=== PATIENT | male | born 1950 | race Caucasian/White ===

== ENCOUNTER → 2019-12-26 | Outpatient (CLI) | payer MEDICARE, OTHER ==
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
== END | disposition home or self-care (01) ==
LOC: RADUSWWP 10:53
PROVIDERS: ATTEND Surgery
DX: K21.0 Gastro-esophageal reflux disease with esophagitis (principal); K44.9 Diaphragmatic hernia without obstruction or gangrene
CPT/HCPCS: 74220

== ENCOUNTER 2020-01-01 10:45 | Day surgery (SDC) | payer MEDICARE, OTHER ==
[2019-12-30 10:35] VITALS: BMI 18.8
[~2020-01-01 10:45] MED LIST: LACTATED RINGERS 1,000 ML IV SCH; LIDOCAINE 1% (10MG/ML) FOR IV START INTRADERMA PRN
[2020-01-01 11:32] VITALS: RESP 16; TEMP 97
[2020-01-01] MEDS ORDERED: LIDOCAINE 1% (10MG/ML) FOR IV START INTRADERMA ONE (11:36)
[2020-01-01] MEDS ORDERED: LIDOCAINE 1% INJ 10MG/ML (20 ML MDV) ONE (12:07)
[2020-01-01] MEDS ORDERED: PROPOFOL 10 MG/ML 20 ML VIAL IV ONE (12:07)
--- NOTE | 2020-01-01 12:08 | P.GSHP ---
History of Present Illness H&P Date: 01/01/20 Chief Complaint: GERD This a 69-year-old male presents today for EGD. He's had issues with GERD. His recent esophagram shows evidence of silent aspiration hiatal hernia and possible esophagitis Past Medical History Past Medical History: GERD/Reflux Additional Past Medical History / Comment(s): weight loss, hiatal hernia History of Any Multi-Drug Resistant Organisms: None Reported Past Surgical History: Appendectomy Additional Past Surgical History / Comment(s): lt foot surgery with pins and screws Past Anesthesia/Blood Transfusion Reactions: No Reported Reaction Past Psychological History: Bipolar, Depression Smoking Status: Current every day smoker Past Alcohol Use History: None Reported Additional Past Alcohol Use History / Comment(s): 5-6 cig/day Past Drug Use History: None Reported - Past Family History Father Family Medical History: Cancer Mother Family Medical History: Deep Vein Thrombosis (DVT) Medications and Allergies Home Medications Medication Instructions Recorded Confirmed Type ALPRAZolam [Xanax] 0.25 mg PO HS 12/30/19 12/30/19 History Acetaminophen [Tylenol Extra 2 tab PO BID 12/30/19 12/30/19 History Strength] Cyanocobalamin (Vitamin B-12) 1,000 mcg PO DAILY 12/30/19 12/30/19 History [Vitamin B-12] Donepezil [Aricept] 5 mg PO DAILY 12/30/19 12/30/19 History FLUoxetine HCL [PROzac] 60 mg PO DAILY 12/30/19 12/30/19 History Ferrous Sulfate [Iron] 325 mg PO DAILY 12/30/19 12/30/19 History OLANZapine [ZyPREXA] 20 mg PO HS 12/30/19 12/30/19 History Omeprazole [PriLOSEC] 40 mg PO DAILY 12/30/19 12/30/19 History Allergies Allergy/AdvReac Type Severity Reaction Status Date / Time No Known Allergies Allergy Verified 01/01/20 11:23 Surgical - Exam Vital Signs Temp Pulse Resp BP Pulse Ox 97.0 F L 71 16 151/67 96 01/01/20 11:29 01/01/20 11:29 01/01/20 11:29 01/01/20 11:29 01/01/20 11:29 - General well developed, well nourished, no distress - Eyes PERRL - ENT normal pinna - Neck no masses - Respiratory normal expansion - Cardiovascular Rhythm: regular - Abdomen Abdomen: soft, non tender Assessment and Plan Assessment: History of GERD. We'll perform EGD.
--- NOTE | 2020-01-01 12:15 | P.OP ---
Date of Procedure: 01/01/20 Preoperative Diagnosis: GERD Postoperative Diagnosis: Antral gastritis Hiatal hernia Esophagitis Procedure(s) Performed: EGD Anesthesia: MAC Surgeon: Solis White Pathology: other (Antrum, esophagus) Condition: stable Disposition: PACU Description of Procedure: The patient's placed on the endoscopy table in the lateral position. He received IV sedation. The gastro-/oropharynx and passed in the esophagus and stomach. Scope was then placed through the pylorus. The first and second portion of the duodenum appeared normal. The scope was then brought back the antrum and this appeared mildly inflamed. A biopsies performed. The scope was then retroflexed and the remainder of the stomach appeared normal. Patient had a moderate size hiatal hernia. The GE junction was 38 cm. The distal esophagus was inflamed and a biopsies performed. The proximal esophagus appeared normal. Scope was then withdrawn from patient.
[2020-01-01 12:40] VITALS: BP 152/80; PULSE 61
== END 2020-01-01 12:54 | disposition home or self-care (01) ==
LOC: ORWHC2ENDO 10:45
PROVIDERS: ATTEND Surgery
DX: K29.50 Unspecified chronic gastritis without bleeding (principal); K21.0 Gastro-esophageal reflux disease with esophagitis; K44.9 Diaphragmatic hernia without obstruction or gangrene; F41.9 Anxiety disorder, unspecified; F31.9 Bipolar disorder, unspecified; F17.210 Nicotine dependence, cigarettes, uncomplicated; Z79.899 Other long term (current) drug therapy; Z90.49 Acquired absence of other specified parts of digestive tract; Z82.49 Family history of ischemic heart disease and other diseases of the circulatory system
CPT/HCPCS: 88305; 43239; J2001; J2704

== ENCOUNTER 2020-01-26 09:14 | Emergency (ER) | payer OTHER, MEDICARE ==
[2020-01-26 09:37] LABS: Basophils # (A) 0.1 k/uL (0-0.2); Basophils % (A) 1 %; Eosinophils # (A) 0.1 k/uL (0-0.7); Eosinophils % (A) 1 %; HGB 12.5 gm/dL (13.0-17.5); Lymphocytes # (A) 1.6 k/uL (1.0-4.8); Lymphocytes % (A) 20 %; MCH 30.6 pg (25.0-35.0); MCHC 32.1 g/dL (31.0-37.0); MCV 95.3 fL (80.0-100.0); Mean Platelet Volume 7.9; Monocytes # (A) 0.4 k/uL (0-1.0); Monocytes % (A) 5 %; Neutrophils # (A) 5.7 k/uL (1.3-7.7); Neutrophils % (A) 71 %; Platelet Count 303 k/uL (150-450); RBC 4.09 m/uL (4.30-5.90); RDW 13.9 % (11.5-15.5)
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
[2020-01-26 09:52] LABS: ALT 22 U/L (4-49); AST 40 U/L (17-59); African American GFR (CKD) >90 (>60 ml/min/1.73 sqM); Albumin 3.8 g/dL (3.5-5.0); Alcohol <10 mg/dL; Alkaline Phosphatase 65 U/L (38-126); Amylase 81 U/L (30-110); Anion Gap 7 mmol/L; Blood Urea Nitrogen 16 mg/dL (9-20); Calcium 8.9 mg/dL (8.4-10.2); Carbon Dioxide 23 mmol/L (22-30); Chloride 111 mmol/L (98-107); Glucose 124 mg/dL (74-99); Non-African American GFR(CKD) 87 (>60 ml/min/1.73 sqM); Sodium 141 mmol/L (137-145); Total Bilirubin 0.6 mg/dL (0.2-1.3); Total Protein 7.1 g/dL (6.3-8.2)
[2020-01-26 09:57] LABS: INR 0.9 (<1.2); Prothrombin Time 9.9 sec (9.0-12.0)
[2020-01-26 10:01] LABS: Potassium 4.8 mmol/L (3.5-5.1)
[2020-01-26 10:02] LABS: Partial Thromboplastin Time 18.5 sec (22.0-30.0)
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
[2020-01-26 10:18] LABS: Troponin I 0.093 ng/mL (0.000-0.034)
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
[2020-01-26 11:12] VITALS: BP 150/78; PULSE 80; RESP 16; TEMP 98
== END 2020-01-26 11:00 | disposition other institution (70) ==
LOC: EC 09:14
DX: S06.2X9A Diffuse traumatic brain injury with loss of consciousness of unspecified duration, initial encounter (principal); S01.01XA Laceration without foreign body of scalp, initial encounter; S80.212A Abrasion, left knee, initial encounter; S80.812A Abrasion, left lower leg, initial encounter; S06.0X9A Concussion with loss of consciousness of unspecified duration, initial encounter; S22.49XA Multiple fractures of ribs, unspecified side, initial encounter for closed fracture; S27.321A Contusion of lung, unilateral, initial encounter; N28.1 Cyst of kidney, acquired; K21.9 Gastro-esophageal reflux disease without esophagitis; F31.9 Bipolar disorder, unspecified; I10 Essential (primary) hypertension; F17.200 Nicotine dependence, unspecified, uncomplicated; Z79.899 Other long term (current) drug therapy
CPT/HCPCS: 36415; 93005; 80053; 82150; 82550; 82553; 83605; 83690; 84484; 85025; 85610; 85730; 80320; 72170; 71045; 72125; 70450; 71260; 74177; 99291; 96365; J0690; Q9967

== ENCOUNTER 2020-03-27 01:34 | Inpatient (IN) | payer MEDICARE, OTHER ==
[2020-03-27] MEDS ORDERED: cefTRIAXone IN SWFI 1,000 MG/10 ML SYRINGE IVP STA (01:47)
--- NOTE | 2020-03-27 01:49 | ED ---
Recheck HPI - General Chief Complaint: Abdominal Pain Stated Complaint: kidney stone Time Seen by Provider: 03/27/20 01:45 Source: EMS, RN notes reviewed, old records reviewed Mode of arrival: EMS Limitations: no limitations - History of Present Illness Initial Comments: this is a 69-year-old male DF for evaluation patient accepted by hospital in transfer patient accepted for transfer for UTI polynephritis urine infection rhabdomyolysis dehydration increased nausea vomiting and not feeling well. Patient is point feels mildly improved as opposed when he presented to the hospital but again patient is a very significantly poor story and history obtained from patient's chart MD Complaint: abnormal lab (pyelo,incCPK) -: unknown Returns Today for: Called Because of Abnormal Lab/Test, persistent/worsening pain related to initial visit Symptoms Since Prior Visit: no new symptoms Context: called for abnormal lab result Associated Symptoms: none Treatments Prior to Arrival: Given Antibiotics on - Related Data Home Medications Medication Instructions Recorded Confirmed ALPRAZolam [Xanax] 0.25 mg PO HS 12/30/19 01/20/20 Acetaminophen [Tylenol Extra 2 tab PO BID 12/30/19 01/20/20 Strength] Cyanocobalamin (Vitamin B-12) 1,000 mcg PO DAILY 12/30/19 01/20/20 [Vitamin B-12] Donepezil [Aricept] 5 mg PO DAILY 12/30/19 01/20/20 FLUoxetine HCL [PROzac] 60 mg PO DAILY 12/30/19 01/20/20 Ferrous Sulfate [Iron] 325 mg PO DAILY 12/30/19 01/20/20 OLANZapine [ZyPREXA] 20 mg PO HS 12/30/19 01/20/20 Omeprazole [PriLOSEC] 40 mg PO DAILY 12/30/19 01/20/20 Allergies Allergy/AdvReac Type Severity Reaction Status Date / Time No Known Allergies Allergy Verified 03/27/20 01:40 Review of Systems ROS Statement: Those systems with pertinent positive or pertinent negative responses have been documented in the HPI. ROS Other: All systems not noted in ROS Statement are negative. Past Medical History Past Medical History: CVA/TIA, GERD/Reflux, Seizure Disorder Additional Past Medical History / Comment(s): hiatal hernia, weight loss History of Any Multi-Drug Resistant Organisms: None Reported Past Surgical History: Appendectomy, Orthopedic Surgery Additional Past Surgical History / Comment(s): left foot surg. w/pins & screw, recent EGD Past Anesthesia/Blood Transfusion Reactions: No Reported Reaction Past Psychological History: ADD/ADHD, Bipolar, Depression Smoking Status: Current every day smoker Past Alcohol Use History: None Reported Past Drug Use History: None Reported - Past Family History Mother Family Medical History: Deep Vein Thrombosis (DVT) Father Family Medical History: Cancer General Exam Limitations: no limitations General appearance: alert, in no apparent distress Head exam: Present: atraumatic, normocephalic, normal inspection Eye exam: Present: normal appearance, PERRL, EOMI. Absent: scleral icterus, conjunctival injection, periorbital swelling ENT exam: Present: normal exam, mucous membranes moist Neck exam: Present: normal inspection. Absent: tenderness, meningismus, lymphadenopathy Respiratory exam: Present: normal lung sounds bilaterally. Absent: respiratory distress, wheezes, rales, rhonchi, stridor Cardiovascular Exam: Present: normal rhythm, tachycardia, normal heart sounds. Absent: systolic murmur, diastolic murmur, rubs, gallop, clicks GI/Abdominal exam: Present: soft, normal bowel sounds. Absent: distended, tenderness, guarding, rebound, rigid Extremities exam: Present: normal inspection, full ROM, normal capillary refill. Absent: tenderness, pedal edema, joint swelling, calf tenderness Back exam: Present: normal inspection Neurological exam: Present: alert, oriented X3, CN II-XII intact Psychiatric exam: Present: normal affect, normal mood Skin exam: Present: warm, dry, intact, normal color. Absent: rash Course Vital Signs 03/27/20 01:36 Temperature 99.2 F Pulse Rate 110 H Respiratory 20 Rate Blood Pressure 135/68 O2 Sat by Pulse 96 Oximetry - Reevaluation(s) Reevaluation #1: 03/27/20 01:48 medical record is reviewed 03/27/20 01:48 transfer paperwork is reviewed 03/27/20 01:48 spoke with transferring physician about patient Reevaluation #2: 03/27/20 01:48 spoke patient regarding findings and plans, questions answered Medical Decision Making - Medical Decision Making 69 male DF for evaluation patient has pyelonephritis, patient be admitted for IV antibiotics hydration trending of lab values. - Radiology Data Radiology results: report reviewed (CT of as abdomen and pelvis does show bila teral pyelonephritis no kidney stone) Disposition Clinical Impression: UTI (urinary tract infection), Acute pyelonephritis, Rhabdomyolysis Disposition: ADMITTED IP TO THIS HOSP Condition: Fair Is patient prescribed a controlled substance at d/c from ED?: No Referrals: Zane Arias MD [Primary Care Provider] - 1-2 days
[2020-03-27] MEDS: SODIUM CHLORIDE 0.9% 500 ML 500 ML IV SCH ×2 (02:10→02:11)
[2020-03-27] MEDS: SODIUM CHLORIDE 0.9% 1,000 ML IV SCH ×3 (02:11→20:40)
[2020-03-27] MEDS: ENOXAPARIN 40 MG/0.4 ML SYRINGE SQ SCH (09:08)
[2020-03-27 13:23] LABS: Basophils % (A) 0 %; Eosinophils % (A) 0 %; HCT 31.7 % (39.0-53.0); HGB 10.1 gm/dL (13.0-17.5); Lymphocytes % (A) 6 %; MCH 30.6 pg (25.0-35.0); MCHC 31.8 g/dL (31.0-37.0); MCV 96.2 fL (80.0-100.0); Mean Platelet Volume 7.4; Monocytes # (A) 0.7 k/uL (0-1.0); Monocytes % (A) 5 %; Neutrophils % (A) 87 %; Platelet Count 286 k/uL (150-450); RBC 3.29 m/uL (4.30-5.90); RDW 13.7 % (11.5-15.5); WBC 16.1 k/uL (3.8-10.6)
[2020-03-27 13:52] LABS: ALT 15 U/L (4-49); AST 34 U/L (17-59); African American GFR (CKD) 65 (>60 ml/min/1.73 sqM); Albumin 2.4 g/dL (3.5-5.0); Albumin/Globulin Ratio 0.9; Alkaline Phosphatase 75 U/L (38-126); Anion Gap 7 mmol/L; Blood Urea Nitrogen 17 mg/dL (9-20); Calcium 7.4 mg/dL (8.4-10.2); Carbon Dioxide 19 mmol/L (22-30); Chloride 111 mmol/L (98-107); Globulin 2.7 g/dL; Glucose 99 mg/dL (74-99); Non-African American GFR(CKD) 56 (>60 ml/min/1.73 sqM); Potassium 3.4 mmol/L (3.5-5.1); Sodium 137 mmol/L (137-145); Total Bilirubin 0.4 mg/dL (0.2-1.3); Total Protein 5.1 g/dL (6.3-8.2)
[2020-03-27 13:56] VITALS: BMI 18.8
--- NOTE | 2020-03-27 14:17 | XR ---
EXAMINATION TYPE: XR chest 1V portable DATE OF EXAM: 03/27/2020 CLINICAL HISTORY: pyelonephritis. TECHNIQUE: Portable frontal view of the chest. COMPARISON: 01/26/[address] chest 01/26/2020. FINDINGS: The cardiomediastinal silhouette is within normal limits for size. Pulmonary vasculature i s normal. Mildly coarsened interstitial markings likely represents emphysematous change. There is no focal air space opacity, pleural effusion, or pneumothorax seen. There is callus formation of left ri b 2 anteriorly likely old healed or healing fracture. IMPRESSION: No acute cardiopulmonary process.
--- NOTE | 2020-03-27 14:21 | US ---
EXAMINATION TYPE: US kidneys/renal and bladder DATE OF EXAM: 03/27/2020 COMPARISON: CT 2019 CLINICAL HISTORY: pyelonephritis. EXAM MEASUREMENTS: Right Kidney: 10.2 x 4.3 x 4.4 cm Left Kidney: 10.7 x 6.1 x 5.2 cm Right Kidney: 2.6 x 2.6 x 2.1cm cyst lateral mid pole Left Kidney: no hydronephrosis or masses seen Bladder: irregular wall Bilateral Jets seen: right jet seen, left jet not seen There is no evidence for hydronephrosis at this point in time. No nephrolithiasis is seen. No kendra s are identified. The urinary bladder is anechoic. Bilateral ureteral jets are seen. IMPRESSION: Urinary bladder wall is irregular thickening could relate to cystitis. Septated cortical cyst upper p ole right kidney. No hydronephrosis.
[2020-03-27 18:18] LABS: Appearance,Urine Cloudy (Clear); Bacteria,Urine Rare /hpf; Bilirubin,Urine Negative (Negative); Blood,Urine Moderate (Negative); Color,Urine Yellow; Glucose,Urine (UA) Negative (Negative); Ketones,Urine 1+ (Negative); Leukocyte Esterase,Urine Large (Negative); Mucus,Urine Rare /hpf; Nitrite,Urine Negative (Negative); PH, Urine 6.5 (5.0-8.0); Protein,Urine 1+ (Negative); RBC,Urine 15 /hpf (0-5); Specific Gravity,Urine 1.012 (1.001-1.035); Urobilinogen,Urine <2.0 mg/dL (<2.0); WBC,Urine >182 /hpf (0-5)
[2020-03-27] MEDS: ALPRAZolam 0.25 MG TAB PO SCH (19:50)
[2020-03-27] MEDS: ACETAMINOPHEN TAB 500 MG TAB PO SCH (19:50)
[2020-03-27] MEDS: levETIRAcetam 500 MG TAB PO SCH (19:51)
[2020-03-27] MEDS: OLANZapine 10 MG TAB PO SCH (19:51)
[2020-03-27] MEDS ORDERED: HYDROmorphone 0.5 MG/0.5 ML SYRINGE IVP PRN (20:08)
[2020-03-27] MEDS ORDERED: HYDROcodone/APAP 5-325MG 1 EACH TAB PO PRN (20:08)
--- NOTE | 2020-03-27 20:51 | HP ---
HISTORY AND PHYSICAL CHIEF COMPLAINT: Abdominal pain. HISTORY OF PRESENT ILLNESS: This 69-year-old gentleman with a past medical history of multiple medical problems including CVA, TIA, GERD, seizure disorder, hiatal hernia, history of appendectomy, DJD, history ADD, ADHD, bipolar depression, being followed by Dr. Degroot in the the outpatient setting, was complaining of abdominal pain. The patient also had features of UTI with pyelonephritis and the patient was referred to [facility] for further evaluation and treatment. The patient was admitted for evaluation and treatment. There is no history of fever or rigors. No headache or loss of consciousness. The patient is unable to give a coherent history, probably has some dysphagia, most of the history was taken from my discussion with staff, reviewing the the chart. PAST MEDICAL HISTORY: History of CVA, TIA, GERD, seizure disorder, hiatal hernia, appendectomy, DJD, ADD, ADHD, bipolar and depression. MEDICATIONS: Prior to admission include Keppra, Prilosec, Zyprexa, iron, Prozac, Aricept, Vitamin B12, Tylenol and Xanax. ALLERGIES: None. FAMILY HISTORY, SOCIAL HISTORY, REVIEW OF SYSTEMS: Could not be taken at length. Family history of DVT apparently. PHYSICAL EXAM: Patient is conscious oriented x1. Pulse 98, blood pressure 129/60, respirations 20, temperature 98 degrees, pulse ox 98% on room air. HEENT: Conjunctivae normal. Oral mucosa moist. NECK: No jugular venous distention. No lymph node enlargement. CARDIOVASCULAR: S1 and S2 present. LUNGS: Breath sounds diminished at the bases. Few scattered rhonchi and crackles. ABDOMEN: Soft, nontender. No mass palpable. LEGS: No edema. NERVOUS SYSTEM: Diffusely weak. SKIN: No ulcers. JOINTS: No active deforming arthropathy. LABS: WBC 16.2, hemoglobin 10.1, sodium 137, potassium 3.4. Creatinine is 1.38. ASSESSMENT: 1. Acute urinary tract infection with sepsis, possible pyelonephritis. 2. History of nephrolithiasis. 3. Change in mental status, metabolic encephalopathy, acute on chronic. 4. Increased WBC. 5. Anemia, normocytic. 6. Hypokalemia. 7. Increased creatinine with acute renal failure possibly prerenal acute tubular necrosis. 8. History of CVA. 9. History of GERD. 10.History of seizure disorder. 11.History of hiatal hernia. 12.History of weight loss. 13.History of ADD and ADHD. 14.History of bipolar depression. 15.History of nicotine dependence, continued ongoing. RECOMMENDATIONS AND DISCUSSION: This 69-year-old gentleman who presented with multiple complex medical issues, we will monitor the patient closely, continue the current management. Will initiate broad- spectrum IV antibiotics. Ultrasound of the abdomen was ordered. I would also recommend a CT scan of the abdomen and pelvis with no contrast and also CT of the brain also. The patient recently had a seizure. I would cut down the IV fluids and repeat labs and I would also recommend neurology evaluation and neuro checks. Overall prognosis guarded because of multiple complex medical issues. Further recommendations to follow. MMODL / IJN: [id number] /
--- NOTE | 2020-03-27 21:30 | CT ---
EXAMINATION TYPE: CT brain wo con DATE OF EXAM: 03/27/2020 COMPARISON: 01/26/2020 HISTORY: weakness, ams CT DLP: 1099.4 mGycm Automated exposure control for dose reduction was used. There is cerebral cortical atrophy. There is hypodensity in the periventricular white matter that is more noticeable around the frontal horns of the lateral ventricles. There is no mass effect nor midli ne shift. There is no sign of intracranial hemorrhage. There is enlargement of the ventricles. The ca lvarium is intact. IMPRESSION: Cerebral atrophy and chronic small vessel ischemia. No change compared to old exam.
--- NOTE | 2020-03-27 21:38 | CT ---
EXAMINATION TYPE: CT abdomen pelvis wo con DATE OF EXAM: 03/27/2020 COMPARISON: Yesterday HISTORY: polynephritis, ams, weight loss CT DLP: 395.6 mGycm Automated exposure control for dose reduction was used. Images were obtained from the diaphragm to the floor the pelvis with no contrast. There is some infiltrate and atelectasis at the posterior lung bases. Heart size is normal. There is no pericardial effusion. There are small pleural effusions. Liver and spleen appear intact. The bile ducts are not dilated. There is no evidence of pancreatic ma ss. Gallbladder is somewhat contracted. Stomach is intact. There is no adrenal mass. There is 3 cm cortical cyst posterior right kidney. There are calcification s at the left and right renal hilum that are probably vascular. There is no hydronephrosis. Ureters a re not dilated. There is no retroperitoneal adenopathy. There is some fat stranding and fluid in the paracolic gutters. Bladder distends smoothly. There is no inguinal hernia. There is no evidence of a bowel obstruction. There is fluid levels in the large bowel down to the rectum. There is no evidence of free air. There is 20% loss of height of L5 vertebral body. There is some mild fat stranding around the left kidney. IMPRESSION: Mild fat stranding around the left kidney similar to exam yesterday and consistent with pyelonephriti s. No hydronephrosis seen to suggest obstruction. Large bowel fluid levels consistent with diarrhea and ileus. There is evidence of small bowel ileus w ith small bowel fluid levels. I do not suspect a mechanical obstruction. Large and small bowel not si gnificantly different than yesterday. L5 compression fracture unchanged. Small amount of fluid in the paracolic gutters is new compared to yesterday. There is new bilateral b asilar pulmonary infiltrates and atelectasis compared to yesterday.
[2020-03-28] MEDS: SODIUM CHLORIDE 0.9% 1,000 ML IV SCH ×2 (03:18→20:06)
[2020-03-28 06:04] LABS: Basophils % (A) 0 %; Eosinophils % (A) 0 %; HCT 29.4 % (39.0-53.0); HGB 9.7 gm/dL (13.0-17.5); Lymphocytes # (A) 0.6 k/uL (1.0-4.8); Lymphocytes % (A) 4 %; MCH 31.4 pg (25.0-35.0); MCHC 33.1 g/dL (31.0-37.0); MCV 95.1 fL (80.0-100.0); Mean Platelet Volume 7.7; Monocytes # (A) 0.7 k/uL (0-1.0); Monocytes % (A) 5 %; Neutrophils # (A) 12.8 k/uL (1.3-7.7); Neutrophils % (A) 89 %; Platelet Count 277 k/uL (150-450); RBC 3.09 m/uL (4.30-5.90); RDW 13.6 % (11.5-15.5); WBC 14.4 k/uL (3.8-10.6)
[2020-03-28] MEDS: ENOXAPARIN 40 MG/0.4 ML SYRINGE SQ SCH (08:41)
[2020-03-28] MEDS: CYANOCOBALAMIN 500 MCG TAB PO SCH (08:42)
[2020-03-28] MEDS: levETIRAcetam 500 MG TAB PO SCH ×2 (08:42→20:02)
[2020-03-28] MEDS: FERROUS SULFATE 325 MG TAB PO SCH (08:42)
[2020-03-28] MEDS: FLUoxetine HCL 20 MG CAP PO SCH (08:42)
[2020-03-28] MEDS: PANTOPRAZOLE 40 MG TABLET PO SCH (08:42)
[2020-03-28] MEDS: ACETAMINOPHEN TAB 500 MG TAB PO SCH ×2 (08:42→20:01)
[2020-03-28] MEDS: DONEPEZIL 5 MG TAB PO SCH (08:42)
[2020-03-28 09:52] LABS: Albumin 2.6 g/dL (3.80-4.90); Albumin/Globulin Ratio 1.3 (1.60-3.17); Anion Gap 7.2 mmol/L (4.00-12.00); BUN/Creat Ratio 15.45 Ratio (12.00-20.00); Calcium 7.3 mg/dL (8.7-10.3); Carbon Dioxide 19.8 mmol/L (21.6-31.8); Non-African American GFR(CKD) 68.1 (60.0-200.0); Total Bilirubin 0.2 mg/dL (0.2-1.2); Total Protein 4.6 g/dL (6.2-8.2)
--- NOTE | 2020-03-28 15:26 | PN ---
PROGRESS NOTE DATE OF SERVICE: 03/28/2020 This is a 69-year-old gentleman who was admitted with acute UTI with sepsis with possible pyelonephritis, being closely monitored. The patient is on broad spectrum IV antibiotics. The cultures are negative so far. The patient had abdominal and pelvis CAT scan yesterday which showed mild fat stranding about the left kidney consistent with pyelonephritis and large bowel fluid levels also. Compression fractures re- demonstrated. The patient is being closely monitored. No chest pain. No palpitations. PAST MEDICAL HISTORY: Reviewed. REVIEW OF SYSTEMS: Could not be taken. The patient is still confused. CURRENT MEDICATIONS: Reviewed include Tylenol, Mcneil, Xanax, Rocephin 1 gram, Aricept, Lovenox, iron sulfate, Prozac, Dilaudid, Keppra, Zyprexa, Protonix. PHYSICAL EXAM: GENERAL: Patient is alert and oriented times three. VITAL SIGNS: Pulse 101, blood pressure 110/68, respirations 16, temperature 98.9, pulse ox 97% on room air. HEENT: Conjunctivae normal. NECK: No jugular venous distention. RESPIRATORY: Breath sounds diminished at the bases. Bilateral scattered rhonchi and crackles. HEART: S1 and S2, muffled. ABDOMEN: Soft, no tenderness. EXTREMITIES: No edema, no swelling. NERVOUS: No focal deficits. LABS: WBC 14, hemoglobin 9.7, sodium 136, potassium 3, calcium is 7.3, and albumin is 2.6, total protein is 4.6, UA noted. ASSESSMENT: 1. Acute urinary tract infection with sepsis with possible left pyelonephritis. 2. History of nephrolithiasis. 3. Change in mental status, metabolic encephalopathy, acute on chronic. 4. Increased WBC. 5. Gait dysfunction. 6. Anemia, normocytic. 7. Hypokalemia. 8. Increased creatinine with acute renal failure possibly prerenal acute tubular necrosis. 9. History of cerebrovascular accident. 10.History of gastroesophageal reflux disease. 11.History of seizure disorder. 12.History of hiatal hernia. 13.History of weight loss. 14.History of attention deficit hyperactivity disorder. 15.History of bipolar depression. 16.History of nicotine dependence, continued ongoing. RECOMMENDATIONS AND DISCUSSION: In this 69-year-old gentleman who presented with multiple complex medical issues, we will monitor the patient closely. Continue the current medications, continue symptomatic treatment. Continue with IV antibiotics. Continue with DVT prophylaxis. Continue the rest of the medications. Otherwise, CT scan noted. PT OT evaluation, possible ECF rehab. Guarded prognosis. Further recommendations to follow. SADIQ / PHILIPPE: [id number] /
[2020-03-28] MEDS: ALPRAZolam 0.25 MG TAB PO SCH (20:02)
[2020-03-28] MEDS: OLANZapine 10 MG TAB PO SCH (20:02)
[2020-03-29] MEDS: SODIUM CHLORIDE 0.9% 1,000 ML IV SCH (05:29)
[2020-03-29 06:50] LABS: Basophils % (A) 0 %; Eosinophils # (A) 0.1 k/uL (0-0.7); Eosinophils % (A) 0 %; HGB 11.2 gm/dL (13.0-17.5); Hypochromasia Slight; Lymphocytes # (A) 0.7 k/uL (1.0-4.8); Lymphocytes % (A) 5 %; MCV 96.8 fL (80.0-100.0); Mean Platelet Volume 7.7; Monocytes # (A) 0.6 k/uL (0-1.0); Monocytes % (A) 4 %; Neutrophils # (A) 12.7 k/uL (1.3-7.7); Neutrophils % (A) 89 %; Platelet Count 338 k/uL (150-450); RBC 3.61 m/uL (4.30-5.90); RDW 13.7 % (11.5-15.5); WBC 14.2 k/uL (3.8-10.6)
[2020-03-29] MEDS: ENOXAPARIN 40 MG/0.4 ML SYRINGE SQ SCH (07:32)
[2020-03-29] MEDS: FLUoxetine HCL 20 MG CAP PO SCH (07:33)
[2020-03-29] MEDS: ACETAMINOPHEN TAB 500 MG TAB PO SCH ×2 (07:33→21:06)
[2020-03-29] MEDS: DONEPEZIL 5 MG TAB PO SCH (07:33)
[2020-03-29] MEDS: PANTOPRAZOLE 40 MG TABLET PO SCH (07:33)
[2020-03-29] MEDS: FERROUS SULFATE 325 MG TAB PO SCH (07:33)
[2020-03-29] MEDS: levETIRAcetam 500 MG TAB PO SCH ×2 (07:33→21:05)
[2020-03-29] MEDS: CYANOCOBALAMIN 500 MCG TAB PO SCH (07:33)
--- NOTE | 2020-03-29 11:11 | P.HPIM ---
History of Present Illness This is a pleasant 69 years old male with multiple medical problems, who was transferred from [facility] for possible kidney stone and pyelonephritis. Most likely patient was partially treated there This morning his sitting in chair, not in distress looked comfortable, he [facility] however he still with conscious of the surrounding, he thought it is 2001, and he could not recall the name of the president. He wasn't sure why he was in the hospital for. However patient denies any chest pain or dizziness, no dyspnea. No dysuria or increased frequency. No abdominal pain. When I asked the patient he told me he has good appetite and is willing to eat. Neurology service on the case he states that he smokes about 2 cigarettes per day however he denies alcohol or illicit drugs Past Medical History Past Medical History: CVA/TIA, GERD/Reflux, Seizure Disorder Additional Past Medical History / Comment(s): hiatal hernia, weight loss, pt had a seizure 03/21/20 History of Any Multi-Drug Resistant Organisms: None Reported Past Surgical History: Appendectomy, Orthopedic Surgery Additional Past Surgical History / Comment(s): left foot surg. w/pins & screw, recent EGD Past Anesthesia/Blood Transfusion Reactions: No Reported Reaction Past Psychological History: ADD/ADHD, Bipolar, Depression Smoking Status: Current every day smoker Past Alcohol Use History: None Reported Additional Past Alcohol Use History / Comment(s): pt states maybe 3 cigs/day Past Drug Use History: None Reported - Past Family History Mother Family Medical History: Deep Vein Thrombosis (DVT) Father Family Medical History: Cancer Medications and Allergies Home Medications Medication Instructions Recorded Confirmed Type ALPRAZolam [Xanax] 0.25 mg PO HS 12/30/19 03/27/20 History Acetaminophen [Tylenol Extra 2 tab PO BID 12/30/19 03/27/20 History Strength] Cyanocobalamin (Vitamin B-12) 1,000 mcg PO DAILY 12/30/19 03/27/20 History [Vitamin B-12] Donepezil [Aricept] 5 mg PO DAILY 12/30/19 03/27/20 History Ferrous Sulfate [Iron] 325 mg PO DAILY 12/30/19 03/27/20 History OLANZapine [ZyPREXA] 20 mg PO HS 12/30/19 03/27/20 History Omeprazole [PriLOSEC] 40 mg PO DAILY 12/30/19 03/27/20 History FLUoxetine HCL [PROzac] 60 mg PO DAILY 03/27/20 03/27/20 History levETIRAcetam [Keppra] 500 mg PO BID 03/27/20 03/27/20 History Allergies Allergy/AdvReac Type Severity Reaction Status Date / Time No Known Allergies Allergy Verified 03/27/20 08:30 Physical Exam Vitals: Vital Signs Temp Pulse Resp BP Pulse Ox 03/29/20 07:33 89 16 03/29/20 07:00 98.7 F 89 16 147/80 95 03/29/20 02:25 137/77 03/29/20 01:26 97.9 F 96 22 180/92 95 03/28/20 18:43 98.3 F 86 18 129/75 96 03/28/20 15:15 101 H 16 03/28/20 15:00 98.9 F 70 16 92/57 99 Intake and Output 03/28/20 03/29/20 03/29/20 22:59 06:59 14:59 Intake Total 290 Balance 290 Intake: Intake, IV Titration 190 Amount Sodium Chloride 0.9% 1, 140 000 ml @ 70 mls/hr IV . [id number] DEVON Rx#:[id number] cefTRIAXone 1 gm In 50 Sodium Chloride 0.9% 50 ml @ 100 mls/hr IVPB Q12HR DEVON Rx#:[id number] Oral 100 Other: Voiding Method Urinal Urinal Diaper Diaper # Voids 3 4 -GENERAL: The patient is alert and oriented x1-2, not in any acute distress. Thin built HEENT: Pupils are round and equally reacting to light. EOMI. No scleral icterus. No conjunctival pallor. Normocephalic, atraumatic. No pharyngeal erythema. No thyromegaly. CARDIOVASCULAR: S1 and S2 present. No murmurs, rubs, or gallops. PULMONARY: Chest is clear to auscultation, no wheezing or crackles. ABDOMEN: Soft, nontender, nondistended, normoactive bowel sounds. No palpable organomegaly. MUSCULOSKELETAL: No joint swelling or deformity. EXTREMITIES: No cyanosis, clubbing, or pedal edema. NEUROLOGICAL: Gross neurological examination did not reveal any focal deficits. SKIN: No rashes. no petechiae. Results CBC & Chem 7: 03/29/20 06:17 03/28/20 05:48 Labs: Abnormal Lab Results - Last 24 Hours (Table) 03/29/20 Range/Units 06:17 WBC 14.2 H (3.8-10.6) k/uL RBC 3.61 L (4.30-5.90) m/uL Hgb 11.2 L (13.0-17.5) gm/dL Hct 35.0 L (39.0-53.0) % Neutrophils # 12.7 H (1.3-7.7) k/uL Lymphocytes # 0.7 L (1.0-4.8) k/uL Microbiology - Last 24 Hours (Table) 03/27/20 17:20 Urine Culture - Final Urine,Clean Catch 03/27/20 12:53 Blood Culture - Preliminary Blood No Growth after 24 hours Thrombosis Risk Factor Assmnt - Choose All That Apply Each Risk Factor Represents 2 Points: Age 61-74 years Each Risk Factor Represents 3 Points: Family history of DVT/PE Thrombosis Risk Factor Assessment Total Risk Factor Score: 5 Thrombosis Risk Factor Assessment Level: High Risk Assessment and Plan Assessment: Possible urinary tract infection with left pyelonephritis at [facility], partially treated Metabolic encephalopathy secondary to above Mild to moderate calories protein malnutrition Acute kidney injury, creatinine improved close to baseline. Currently with a reference range History of kidney stone Gait dysfunction Normochromic anemia History of CVA Gastroesophageal reflux disease History of seizure History of hiatal hernia Bipolar depression, not an active issue Nicotine dependence Plan: This is a pleasant 69 years old male with multiple medical problems admitted with UTI. And altered mental status, improved gradually. Follow-up final culture results. Continue with ceftriaxone. Discontinue IV fluids and encourage eating. Follow-up recommendation by neurologist Labs and medication were reviewed.. Continue same treatment. Continue with symptomatic treatment. Resume home medication. Monitor lytes and vitals. DVT and GI prophylaxis. Further recommendationsas per clinical course of the patient DVT prophylaxis: Subcutaneous Lovenox GI Prophylaxis: Ppi Prognosis is guarded
[2020-03-29 14:17] LABS: Anion Gap 10.3 mmol/L (4.00-12.00); BUN/Creat Ratio 12.73 Ratio (12.00-20.00); Calcium 7.7 mg/dL (8.7-10.3); Carbon Dioxide 19.7 mmol/L (21.6-31.8); Non-African American GFR(CKD) 68.1 (60.0-200.0); Potassium 3.1 mmol/L (3.5-5.5)
[2020-03-29] MEDS: ASPIRIN 81 MG PO SCH (16:51)
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
--- NOTE | 2020-03-29 17:57 | US ---
EXAMINATION TYPE: US carotid duplex BILAT DATE OF EXAM: 03/29/2020 COMPARISON: NONE CLINICAL HISTORY: hx of tia. Hx of TIA. Hyperlipidemia. Previous smoker. EXAM MEASUREMENTS: RIGHT: Peak Systolic Velocity (PSV) cm/sec ----- Right CCA: 66.6 ----- Right ICA: 77.3 ----- Right ECA: 91.6 ICA/CCA ratio: 1.2 RIGHT: End Diastole cm/sec ----- Right CCA: 13.8 ----- Right ICA: 35.5 ----- Right ECA: 10.2 LEFT: Peak Systolic Velocity (PSV) cm/sec ----- Left CCA: 89.4 ----- Left ICA: 118.4 ----- Left ECA: 114.0 ICA/CCA ratio: 1.3 LEFT: End Diastole cm/sec ----- Left CCA: 24.5 ----- Left ICA: 32.8 ----- Left ECA: 10.7 VERTEBRALS (direction of flow): Right Vertebral: Antegrade Left Vertebral: Antegrade Rhythm: Normal Intimal thickening seen bilaterally. Hyperechoic plaque seen bilateral carotid bifurcations and left proximal ICA. More plaque seen on left side. No elevated velocities at this time. IMPRESSION: There is antegrade flow in the vertebral arteries. The images and measurements suggest close to 50% s tenosis of both internal carotid arteries. Criteria for Assigning % of Stenosis / Diameter reduction (Estimation based on the indirect measurements of the internal carotid artery velocities (ICA PSV). 1. Normal (no stenosis)=ICA PSV < 125 cm/s: ratio < 2.0: ICA EDV<40 cm/s. 2. Less than 50% stenosis=ICA PSV < 125 cm/s: ratio < 2.0: ICA EDV<40 cm/s. 3. 50 to 69% stenosis=ICA PSV of 125 to 230 cm/s: ration 2.0 ? 4.0: ICA EDV 40-100 cm/s. 4. Greater than 70% stenosis to near occlusion= ICA PSV > 230 cm/s: ratio > 4.0: ICA EDV > 100 cm/s. 5. Near occlusion= ICA PSV velocities may be low or undetectable: variable ratio and ICA EDV. 6. Total occlusion=unable to detect flow.
[2020-03-29] MEDS: ATORVASTATIN 20 MG TAB PO SCH (21:05)
[2020-03-29] MEDS: ALPRAZolam 0.25 MG TAB PO SCH (21:05)
[2020-03-29] MEDS: OLANZapine 10 MG TAB PO SCH (21:06)
[2020-03-29 23:02] LABS: Folate, Serum 3.8 ng/mL
[2020-03-30 06:09] LABS: Appearance,Urine Clear (Clear); Bilirubin,Urine Negative (Negative); Blood,Urine Trace (Negative); Color,Urine Colorless; Glucose,Urine (UA) Negative (Negative); Hyaline Casts,Urine 1 /lpf (0-2); Ketones,Urine Negative (Negative); Leukocyte Esterase,Urine Negative (Negative); Mucus,Urine Rare /hpf; Nitrite,Urine Negative (Negative); Protein,Urine Negative (Negative); RBC,Urine 2 /hpf (0-5); Specific Gravity,Urine 1.005 (1.001-1.035); Urobilinogen,Urine <2.0 mg/dL (<2.0); WBC,Urine 3 /hpf (0-5)
[2020-03-30 06:52] LABS: Basophils % (A) 0 %; Eosinophils # (A) 0.2 k/uL (0-0.7); Eosinophils % (A) 2 %; HCT 31.9 % (39.0-53.0); HGB 10.2 gm/dL (13.0-17.5); Lymphocytes # (A) 1.1 k/uL (1.0-4.8); Lymphocytes % (A) 10 %; MCH 30.4 pg (25.0-35.0); MCHC 32.1 g/dL (31.0-37.0); MCV 94.6 fL (80.0-100.0); Mean Platelet Volume 7.6; Monocytes # (A) 0.7 k/uL (0-1.0); Monocytes % (A) 6 %; Neutrophils # (A) 8.6 k/uL (1.3-7.7); Neutrophils % (A) 79 %; Platelet Count 363 k/uL (150-450); RBC 3.37 m/uL (4.30-5.90); RDW 13.9 % (11.5-15.5); WBC 10.8 k/uL (3.8-10.6)
[2020-03-30] MEDS: ACETAMINOPHEN TAB 500 MG TAB PO SCH ×2 (08:45→20:47)
[2020-03-30] MEDS: CYANOCOBALAMIN 500 MCG TAB PO SCH (08:45)
[2020-03-30] MEDS: FERROUS SULFATE 325 MG TAB PO SCH (08:45)
[2020-03-30] MEDS: ASPIRIN 81 MG PO SCH (08:45)
[2020-03-30] MEDS: PANTOPRAZOLE 40 MG TABLET PO SCH (08:45)
[2020-03-30] MEDS: ENOXAPARIN 40 MG/0.4 ML SYRINGE SQ SCH (08:45)
[2020-03-30] MEDS: FLUoxetine HCL 20 MG CAP PO SCH (08:45)
[2020-03-30] MEDS: DONEPEZIL 5 MG TAB PO SCH (08:46)
[2020-03-30 09:10] LABS: African American GFR (CKD) 100.6 (60.0-200.0); Anion Gap 7.7 mmol/L (4.00-12.00); BUN/Creat Ratio 15.56 Ratio (12.00-20.00); Calcium 7.8 mg/dL (8.7-10.3); Carbon Dioxide 24.3 mmol/L (21.6-31.8); Non-African American GFR(CKD) 86.8 (60.0-200.0); Potassium 2.8 mmol/L (3.5-5.5)
--- NOTE | 2020-03-30 10:00 | ECHOF ---
Referral Reason:stroke MEASUREMENTS -------- HEIGHT: 170.2 cm WEIGHT: 54.4 kg BP: RVIDd: 3.2 cm (< 3.3) IVSd: 1.0 cm (0.6 - 1.1) LVIDd: 3.4 cm (3.9 - 5.3) LVPWd: 1.1 cm (0.6 - 1.1) IVSs: 1.5 cm LVIDs: 2.6 cm LVPWs: 1.5 cm LA Diam: 3.4 cm (2.7 - 3.8) Ao Diam: 3.2 cm (2.0 - 3.7) AV Cusp: 1.2 cm (1.5 - 2.6) MV EXCURSION: 15.618 mm (> 18.000) MV EF SLOPE: 86 mm/s (70 - 150) EPSS: 0.7 cm MV E Doni: 0.92 m/s MV DecT: 165 ms MV A Doni: 0.80 m/s MV E/A Ratio: 1.15 AV maxP.16 mmHg AV meanP.09 mmHg RAP: 5.00 mmHg RVSP: 32.48 mmHg FINDINGS -------- Sinus rhythm. This was a technically adequate study. The left ventricular size is normal. There is borderline concentric left ventricular hypertrophy. Overall left ventricular systolic function is normal with, an EF between 60 - 65 %. The right ventricle is normal in size. The left atrial size is normal. The right atrium is normal in size. Interatrial and interventricular septum intact. There is mild to moderate aortic valve sclerosis. Trace to mild aortic regurgitation. There is mi ld aortic stenosis present. Peak/mean gradient across the Aortic Valve is 22.16mmHg / 11.09mmHg. Mild mitral annular calcification present. Mild tricuspid regurgitation present. Right ventricular systolic pressure is normal at < 35 mmHg. There is no pulmonic regurgitation present. The aortic root size is normal. Normal inferior vena cava with normal inspiratory collapse consistent with estimated right atrial pre ssure of 5 mmHg. There is no pericardial effusion. CONCLUSIONS -------- 1. The left ventricular size is normal. 2. There is borderline concentric left ventricular hypertrophy. 3. Overall left ventricular systolic function is normal with, an EF between 60 - 65 %. 4. There is mild to moderate aortic valve sclerosis. 5. Trace to mild aortic regurgitation. 6. There is mild aortic stenosis present. 7. Peak/mean gradient across the Aortic Valve is 22.16mmHg / 11.09mmHg. 8. Mild tricuspid regurgitation present. 9. There is no pericardial effusion. RN CORRECTIONAL: Tamica Murphy RDCS
[2020-03-30] MEDS ORDERED: Potassium Replacement Protocol 1 EACH MISC MISCELLANE PRN ×2 (10:03)
[2020-03-30] MEDS ORDERED: Magnesium Replacement Protocol 1 EACH MISC MISCELLANE PRN (10:03)
[2020-03-30] MEDS: POTASSIUM CHLORIDE ER 20 MEQ TAB.ER PO SCH ×3 (10:14→12:47)
[2020-03-30] MEDS: levETIRAcetam 500 MG TAB PO SCH ×2 (10:14→20:47)
[2020-03-30] MEDS ORDERED: metroNIDAZOLE-NS PMX 500 MG in SALINE 1 100ML.BAG IVPB SCH (13:06)
--- NOTE | 2020-03-30 13:09 | P.PN ---
Subjective This is a pleasant 69 years old male with multiple medical problems, who was transferred from [facility] for possible kidney stone and pyelonephritis. Most likely patient was partially treated there This morning his sitting in chair, not in distress looked comfortable, he knows he isn't [facility] however he still with conscious of the surrounding, he thought it is 2001, and he could not recall the name of the president. He wa sn't sure why he was in the hospital for. However patient denies any chest pain or dizziness, no dyspnea. No dysuria or increased frequency. No abdominal pain. When I asked the patient he told me he has good appetite and is willing to eat. Neurology service on the case he states that he smokes about 2 cigarettes per day however he denies alcohol or illicit drugs 03/30/20 Patient is sleepy today, he opens eyes to verbal stimuli smokes [place] to sleep right away. His been febrile Labs reviewed his WBC is 10.8 K, rest of the CBC is unremarkable, low potassium of 2.8 his been replaced, magnesium 1.8, or going to give 1 dose of magnesium sulfate. Repeat UA from today showing no evidence of infection. However protocol CT done and is elevated at 12. Urine culture showing no growth after [address] of the abdomen and pelvis done earlier showing possible left pyelonephritis Echocardiogram: Ejection fraction 60-65% with no significant for heart disease. Carotid Doppler: Close to 50% stenosis of both internal carotid arteries bilateral internal carotid artery stenosis by 50% Currently patient remains on ceftriaxone 2 g daily. We will add Flagyl Review of systems: N/a Active Medications Generic Name Dose Route Start Last Admin Trade Name Michael PRN Reason Stop Dose Admin Acetaminophen 1,000 mg 03/27/20 21:00 03/30/20 08:45 Acetaminophen Tab 500 Mg Tab PO 1,000 mg BID [facility] Administration Hydrocodone Bitart/Acetaminophen 1 each 03/27/20 20:08 Hydrocodone/Apap 5-325mg 1 Each Tab PO Q6HR PRN Pain Alprazolam 0.25 mg 03/27/20 21:00 03/29/20 21:05 Alprazolam 0.25 Mg Tab PO 0.25 mg HS [facility] Administration Aspirin 81 mg 03/29/20 16:45 03/30/20 08:45 Aspirin 81 Mg PO 81 mg DAILY [facility] Administration Atorvastatin Calcium 20 mg 03/29/20 21:00 03/29/20 21:05 Atorvastatin 20 Mg Tab PO 20 mg HS [facility] Administration Cyanocobalamin 1,000 mcg 03/28/20 09:00 03/30/20 08:45 Cyanocobalamin 500 Mcg Tab PO 1,000 mcg DAILY [facility] Administration Donepezil HCl 5 mg 03/28/20 09:00 03/30/20 08:46 Donepezil 5 Mg Tab PO 5 mg DAILY [facility] Administration Enoxaparin Sodium 40 mg 03/27/20 09:00 03/30/20 08:45 Enoxaparin 40 Mg/0.4 Ml Syringe SQ 40 mg DAILY [facility] Administration Ferrous Sulfate 325 mg 03/28/20 09:00 03/30/20 08:45 Ferrous Sulfate 325 Mg Tab PO 325 mg DAILY [facility] Administration Fluoxetine HCl 60 mg 03/28/20 09:00 03/30/20 08:45 Fluoxetine Hcl 20 Mg Cap PO 60 mg DAILY [facility] Administration Hydromorphone HCl 0.5 mg 03/27/20 20:08 Hydromorphone 0.5 Mg/0.5 Ml Syringe IVP Q6HR PRN Severe Pain Ceftriaxone Sodium 1 gm/ 50 mls @ 100 mls/hr 03/27/20 09:00 03/30/20 08:44 Sodium Chloride IVPB 100 mls/hr Q12HR [facility] Administration Magnesium Sulfate/Dextrose 1 100 mls @ 100 mls/hr 03/30/20 14:00 gm/ IV Solution IVPB 03/30/20 14:59 ONCE ONE Levetiracetam 500 mg 03/27/20 21:00 03/30/20 10:14 Levetiracetam 500 Mg Tab PO 500 mg BID [facility] Administration Miscellaneous Information 1 each 03/30/20 10:03 Potassium Replacement Protocol 1 Each Misc MISCELLANE DAILY PRN Per Protocol Protocol Miscellaneous Information 1 each 03/30/20 10:03 Magnesium Replacement Protocol 1 Each Misc MISCELLANE DAILY PRN Per Protocol Protocol Miscellaneous Information 1 each 03/30/20 10:03 Potassium Replacement Protocol 1 Each Misc MISCELLANE DAILY PRN Per Protocol Protocol Olanzapine 20 mg 03/27/20 21:00 03/29/20 21:06 Olanzapine 10 Mg Tab PO 20 mg HS [facility] Administration Pantoprazole Sodium 40 mg 03/28/20 07:30 03/30/20 08:45 Pantoprazole 40 Mg Tablet PO 40 mg DAILY@0730 [facility] Administration Objective - Vital Signs Vital signs: Vital Signs Temp 98.1 F 03/30/20 07:00 Pulse 96 03/30/20 07:00 Resp 16 03/30/20 07:00 BP 137/74 03/30/20 07:00 Pulse Ox 97 03/30/20 07:00 Intake & Output 03/29/20 03/30/20 03/30/20 18:59 06:59 18:59 Intake Total 330 1440 Balance 330 1440 Intake: Intake, IV Titration 330 Amount Sodium Chloride 0.9% 1, 280 000 ml @ 70 mls/hr IV . [id number] [facility] Rx#:[id number] cefTRIAXone 1 gm In 50 Sodium Chloride 0.9% 50 ml @ 100 mls/hr IVPB Q12HR [facility] Rx#:[id number] Oral 1440 Other: Voiding Method Urinal Urinal Diaper Diaper Diaper # Voids 1 1 - Exam -GENERAL: The patient is alert and oriented x1-2, not in any acute distress. Thin built HEENT: Pupils are round and equally reacting to light. EOMI. No scleral icterus. No conjunctival pallor. Normocephalic, atraumatic. No pharyngeal erythema. No thyromegaly. CARDIOVASCULAR: S1 and S2 present. No murmurs, rubs, or gallops. PULMONARY: Chest is clear to auscultation, no wheezing or crackles. ABDOMEN: Soft, nontender, nondistended, normoactive bowel sounds. No palpable organomegaly. MUSCULOSKELETAL: No joint swelling or deformity. EXTREMITIES: No cyanosis, clubbing, or pedal edema. NEUROLOGICAL: Gross neurological examination did not reveal any focal deficits. SKIN: No rashes. no petechiae. - Labs CBC & Chem 7: 03/30/20 06:29 03/30/20 06:29 Labs: Abnormal Lab Results - Last 24 Hours (Table) 03/29/20 03/29/20 03/29/20 Range/Units 06:17 06:17 06:17 WBC (3.8-10.6) k/uL RBC (4.30-5.90) m/uL Hgb (13.0-17.5) gm/dL Hct (39.0-53.0) % Neutrophils # (1.3-7.7) k/uL Potassium 3.1 L (3.5-5.5) mmol/L Chloride 110 H (96-109) mmol/L Carbon Dioxide 19.7 L (21.6-31.8) mmol/L Calcium 7.7 L (8.7-10.3) mg/dL Vitamin B12 1656.0 H (200.0-944.0) pg/mL Procalcitonin 12.01 H (0.02-0.09) ng/mL Urine Blood (Negative) Urine Mucus (None) /hpf 03/30/20 03/30/20 03/30/20 Range/Units 05:50 06:29 06:29 WBC 10.8 H (3.8-10.6) k/uL RBC 3.37 L (4.30-5.90) m/uL Hgb 10.2 L (13.0-17.5) gm/dL Hct 31.9 L (39.0-53.0) % Neutrophils # 8.6 H (1.3-7.7) k/uL Potassium 2.8 L (3.5-5.5) mmol/L Chloride (96-109) mmol/L Carbon Dioxide (21.6-31.8) mmol/L Calcium 7.8 L (8.7-10.3) mg/dL Vitamin B12 (200.0-944.0) pg/mL Procalcitonin (0.02-0.09) ng/mL Urine Blood Trace H (Negative) Urine Mucus Rare H (None) /hpf Microbiology - Last 24 Hours (Table) 03/27/20 12:53 Blood Culture - Preliminary Blood No Growth after 48 hours Assessment and Plan Assessment: Possible urinary tract infection with left pyelonephritis at [facility], partially treated Metabolic encephalopathy secondary to above Mild to moderate calories protein malnutrition Acute kidney injury, creatinine improved close to baseline. Currently with a reference range Bilateral internal carotid artery stenosis about 50% History of kidney stone Gait dysfunction Normochromic anemia History of CVA Gastroesophageal reflux disease History of seizure History of hiatal hernia Bipolar depression, not an active issue Nicotine dependence Plan: This is a pleasant 69 years old male with multiple medical problems admitted wit h UTI. And altered mental status, neurology team on the case. Continue with ceftriaxone, and Flagyl. Discontinue IV fluids and encourage eating. Follow-up recommendation by neurologist Labs and medication were reviewed.. Continue same treatment. Continue with symptomatic treatment. Resume home medication. Monitor lytes and vitals. DVT and GI prophylaxis. Further recommendationsas per clinical course of the patient DVT prophylaxis: Subcutaneous Lovenox GI Prophylaxis: Ppi Prognosis is guarded
[2020-03-30] MEDS ORDERED: MAGNESIUM SULFATE-D5W PMX 1 GM in DEXTROSE/WATER 1 100ML.BAG IVPB ONE (14:00)
--- NOTE | 2020-03-30 16:43 | CDI ---
Documentation Clarification Form Date: 03/30/2020 04:24:57 PM From: Nancy Capps RN, CCDS Admit Date: 03/27/2020 01:47:00 AM Patient Name: Dyan Medrano Visit Number: [id number] ATTENTION: The Clinical Documentation Specialists (CDI) and [facility] Coding Staff appreciate your assistance in clarifying documentation. Please respond to the clarification below the line at the bottom and electronically sign. The CDI & [facility] Coding staff will review the response and follow-up if needed. Please note: Queries are made part of the Legal Health Record. If you have any questions, please contact the author of this message via ITS. Dr. Tyson Leonard Mild to Moderate Malnutrition has been documented in 03/29-03/30 attending progress notes and requires specificity and a range diagnosis cannot be coded per coding guidelines. History/Risk Factors: CVA, Gerd, Seizure disorder Clinical Indicators: 03/27 H&P: "The patient is unable to give a coherent history, probably has some dysphagia." 03/29-03/30 Attending Progress Notes: "Thin built" 03/27-03/30 Labs: total protein 5.1/4.6, albumin 2.4/2.6, albumin/globulin ratio 1.3, Vitamin b12, calcium 7.4/7.3/7.7/7.8 Current BMI: 18.8 03/27 & 03/27 Dietary consult: "Underweight, moderate clavicle and orbital muscle wasting Insufficient energy intake: patient c/o nausea and vomiting per dietary consult Per nursing assessment: bilateral lower extremity weakness Treatment: Dietary Consult: completed 03/27 & 03/30 Supplements: Ensure Enlive TID Lab monitoring: Am daily In your professional opinion, can you please clarify if these findings more specifically as one of the following conditions? Mild Protein-Calorie Malnutrition Moderate Protein-Calorie Malnutrition Unable to determine (Last Revision: December 2018) Mild Protein-Calorie Malnutrition MTDD
--- NOTE | 2020-03-30 16:52 | P.PN ---
Subjective Progress Note Date: 03/30/20 She was seen at bedside and he had no complaints. He states that he's doing well and denies of any focal weakness, visual disturbance or numbness. Objective - Vital Signs Vital signs: Vital Signs Temp 98.0 F 03/30/20 13:28 Pulse 69 03/30/20 13:28 Resp 16 03/30/20 13:28 BP 119/74 03/30/20 13:28 Pulse Ox 95 03/30/20 13:28 Intake & Output 03/29/20 03/30/20 03/30/20 18:59 06:59 18:59 Intake Total 330 1440 Balance 330 1440 Weight 54.431 kg Intake: Intake, IV Titration 330 Amount Sodium Chloride 0.9% 1, 280 000 ml @ 70 mls/hr IV . [id number] [facility] Rx#:[id number] cefTRIAXone 1 gm In 50 Sodium Chloride 0.9% 50 ml @ 100 mls/hr IVPB Q12HR [facility] Rx#:[id number] Oral 1440 Other: Voiding Method Urinal Urinal Diaper Diaper Diaper # Voids 1 1 - Exam GENERAL: The patient is lying in bed and is not in acute distress. NEUROLOGICAL: Higher mental function: The patient is awake, alert, oriented to self, place and time. He is slow to respond but responding questions correctly. He is able to identify objects correctly (pen and watch). Patient is following simple commands. No aphasia and no neglect. Cranial nerves: The pupils are round, equal and reactive to light. Visual lee are full to confrontation throughout. Extraocular movement is intact no nystagmus is noted. Facial sensation is normal to touch throughout. The facial strength is normal throughout. Hearing is normal bilaterally to hand rub. Tongue is midline and moved [id number] without any difficulty. No dysarthria is noted. Shoulder shrug is normal bilaterally. Motor: Gait: was two person assist to get patient out of bed but had magnetic gait. The strength is 4+ to 5- throughout. Somewhat decreased bulk throughout. Normal tone. Cerebellum: Normal finger to nose bilaterally. Sensation: Sensation is normal to touch throughout. Reflexes (right/left): 2+ throughout except 3+ at bilateral tricpes and patellar. Otherwise 2+ throughout. Ankles are 1+ bilaterally. Plantars are downgoing bilaterally. - Labs CBC & Chem 7: 03/30/20 06:29 03/30/20 14:19 Labs: Abnormal Lab Results - Last 24 Hours (Table) 03/29/20 03/29/20 03/30/20 Range/Units 06:17 06:17 05:50 WBC (3.8-10.6) k/uL RBC (4.30-5.90) m/uL Hgb (13.0-17.5) gm/dL Hct (39.0-53.0) % Neutrophils # (1.3-7.7) k/uL Potassium (3.5-5.5) mmol/L Calcium (8.7-10.3) mg/dL Vitamin B12 1656.0 H (200.0-944.0) pg/mL Procalcitonin 12.01 H (0.02-0.09) ng/mL Urine Blood Trace H (Negative) Urine Mucus Rare H (None) /hpf 03/30/20 03/30/20 Range/Units 06:29 06:29 WBC 10.8 H (3.8-10.6) k/uL RBC 3.37 L (4.30-5.90) m/uL Hgb 10.2 L (13.0-17.5) gm/dL Hct 31.9 L (39.0-53.0) % Neutrophils # 8.6 H (1.3-7.7) k/uL Potassium 2.8 L (3.5-5.5) mmol/L Calcium 7.8 L (8.7-10.3) mg/dL Vitamin B12 (200.0-944.0) pg/mL Procalcitonin (0.02-0.09) ng/mL Urine Blood (Negative) Urine Mucus (None) /hpf Microbiology - Last 24 Hours (Table) 03/27/20 12:53 Blood Culture - Preliminary Blood No Growth after 72 hours Assessment and Plan Assessment: Cognitive impairment, urinary incontinence and falls is a likely suggestive of normal pressure hydrocephalus which correlates with the brain imaging History of ?seizures History of TIA Traumatic brain injury (about 2 months ago) Acute urinary tract infection with sepsis with possible left pyelonephritis. History of bipolar Nicotine dependence Plan: Regarding the patient history of seizures, the patient is on Keppra 500 mg twice a day and that is to be continued. I will also not modify that antiepileptic drug since it seems that the seizure is controlled. The patient did not have any seizure during hospital stay or within last 7 days. I will hold off on EEG for now. Regarding the patient memory problems, urinary incontinence and falls which seem consisted of normal pressure hydrocephalus. Also did imaging CT of the head the scene also consisted with normal pressure hydrocephalus (CT of the head shows atrophy but his ventricles lateral, third and fourth ventricle are more significantly enlarged in comparison to the atrophy). I notified the sister that the patient needs a lumbar puncture as an outpatient and possibly a shunt if lumbar puncture shows improvement in his symptoms. She said she'll take into consideration. TSH: 0.860, vitamin B12: 1656 and folate: 3.8. Also seeing neuropsychiatry for further assessment of the his cognition as an outpatient. Regarding the patient the TIA: carotid duplex: There is anterior grade flow in the vertebral arteries. The images and measurements suggest close to 50% stenosis of both internal carotid arteries. 2-D echo: Left ventricle hypertrophy. Ejection fraction of 60-65%. There is a mild aortic stenosis present. I'll order lipid profile, Continue Aspirin 81 mg and Lipitor 20 mg daily for secondary stroke prophylaxis Regarding the patient urinary tract infection with suspicion of pyelonephritis we'll defer the management to the primary team. Patient's sister stated that she'll make sure the patient sees a neurologist as an outpatient. She stated that that she's thinking about making the patient see Dr. Santiago. Again if the lumbar puncture shows improvement recommend the shunt which he needs to see the neurosurgery for that. He was counseled on tobacco cessation. Thank You for the consult. Mayito Berry M.D. Neuro-hospitalist Time with Patient: Less than 30
[2020-03-30] MEDS: ATORVASTATIN 20 MG TAB PO SCH (20:47)
[2020-03-30] MEDS: ALPRAZolam 0.25 MG TAB PO SCH (20:47)
[2020-03-30] MEDS: OLANZapine 10 MG TAB PO SCH (21:55)
[2020-03-31 04:43] LABS: Chol/HDL Ratio 6.81
[2020-03-31] MEDS: FLUoxetine HCL 20 MG CAP PO SCH (10:51)
[2020-03-31] MEDS: ENOXAPARIN 40 MG/0.4 ML SYRINGE SQ SCH (10:51)
[2020-03-31] MEDS: DONEPEZIL 5 MG TAB PO SCH (10:52)
[2020-03-31] MEDS: FERROUS SULFATE 325 MG TAB PO SCH (10:52)
[2020-03-31] MEDS: ASPIRIN 81 MG PO SCH (10:52)
[2020-03-31] MEDS: PANTOPRAZOLE 40 MG TABLET PO SCH (10:52)
[2020-03-31] MEDS: levETIRAcetam 500 MG TAB PO SCH ×2 (10:52→21:26)
[2020-03-31] MEDS: CYANOCOBALAMIN 500 MCG TAB PO SCH (10:52)
[2020-03-31] MEDS: ACETAMINOPHEN TAB 500 MG TAB PO SCH ×2 (10:52→21:26)
--- NOTE | 2020-03-31 18:18 | P.PN ---
Subjective Progress Note Date: 03/31/20 Patient was seen at bedside and he is said that he is doing fairly well. Denies of any weakness, numbness visual disturbance. Once is normal and he will be discharged home. Objective - Vital Signs Vital signs: Vital Signs Temp 98.1 F 03/31/20 11:52 Pulse 80 03/31/20 11:52 Resp 16 03/31/20 11:52 BP 162/78 03/31/20 11:52 Pulse Ox 97 03/31/20 11:52 Intake & Output 03/30/20 03/31/20 03/31/20 18:59 06:59 18:59 Intake Total 240 250 250 Balance 240 250 250 Weight 54.431 kg Intake: Intake, IV Titration 50 50 Amount cefTRIAXone 1 gm In 50 50 Sodium Chloride 0.9% 50 ml @ 100 mls/hr IVPB Q12HR [facility] Rx#:[id number] Oral 240 200 200 Other: Voiding Method Diaper Diaper Toilet Incontinent Incontinent # Voids 1 2 4 # Bowel Movements 1 - Exam GENERAL: The patient is lying in bed and is not in acute distress. NEUROLOGICAL: Higher mental function: The patient is awake, alert, oriented to self, place and time. He is slow to respond but responding questions correctly. He is able to identify objects correctly (pen and watch). Patient is following simple commands. No aphasia and no neglect. Cranial nerves: The pupils are round, equal and reactive to light. Visual lee are full to confrontation throughout. Extraocular movement is intact no nystagmus is noted. Facial sensation is normal to touch throughout. The facial strength is normal throughout. Hearing is normal bilaterally to hand rub. Tongue is midline and moved [id number] without any difficulty. No dysarthria is noted. Shoulder shrug is normal bilaterally. Motor: Gait: was two person assist to get patient out of bed but had magnetic gait. The strength is 4+ to 5- throughout. Somewhat decreased bulk throughout. Normal tone. Cerebellum: Normal finger to nose bilaterally. Sensation: Sensation is normal to touch throughout. Reflexes (right/left): 2+ throughout except 3+ at bilateral tricpes and patellar. Otherwise 2+ throughout. Ankles are 1+ bilaterally. Plantars are downgoing bilaterally. - Labs CBC & Chem 7: 03/30/20 06:29 03/30/20 14:19 Labs: Abnormal Lab Results - Last 24 Hours (Table) 03/30/20 03/30/20 Range/Units 06:29 14:19 Triglycerides 165.0 H (0.0-149.0) mg/dL HDL Cholesterol 16.0 L (40.0-60.0) mg/dL Procalcitonin 5.22 H (0.02-0.09) ng/mL Microbiology - Last 24 Hours (Table) 03/27/20 12:53 Blood Culture - Preliminary Blood No Growth after 96 hours Assessment and Plan Assessment: Cognitive impairment, urinary incontinence and falls is a likely suggestive of normal pressure hydrocephalus which correlates with the brain imaging History of ?seizures History of TIA Traumatic brain injury (about 2 months ago) Acute urinary tract infection with sepsis with possible left pyelonephritis. History of bipolar Nicotine dependence Plan: Regarding the patient history of seizures, the patient is on Keppra 500 mg twice a day and that is to be continued. I will also not modify that antiepileptic drug since it seems that the seizure is controlled. The patient did not have any seizure during hospital stay or within last 7 days. EEG is not warranted at this time since he had no further seizure-like activity recently. Regarding the patient memory problems, urinary incontinence and falls which seem consisted of normal pressure hydrocephalus. Also did imaging CT of the head the scene also consisted with normal pressure hydrocephalus (CT of the head shows atrophy but his ventricles lateral, third and fourth ventricle are more significantly enlarged in comparison to the atrophy). I notified the sister that the patient needs a lumbar puncture as an outpatient and possibly a shunt if lumbar puncture shows improvement in his symptoms. She said she'll take into consideration. TSH: 0.860, vitamin B12: 1656 and folate: 3.8. Also seeing neuropsychiatry for further assessment of the his cognition as an outpatient. Regarding the patient the TIA: carotid duplex: There is anterior grade flow in the vertebral arteries. The images and measurements suggest close to 50% stenosis of both internal carotid arteries. 2-D echo: Left ventricle hypertrophy. Ejection fraction of 60-65%. There is a mild aortic stenosis present. Lipid profile: Triglyceride 165, cholesterol is 109, LDL is 60 HDL is 16. Continue Aspirin 81 mg and Lipitor 20 mg daily for secondary stroke prophylaxis Regarding the patient urinary tract infection with suspicion of pyelonephritis we'll defer the management to the primary team. Patient's sister stated that she'll make sure the patient sees a neurologist as an outpatient. She stated that that she's thinking about making the patient see Dr. Santiago. Again if the lumbar puncture shows improvement recommend the shunt which he needs to see the neurosurgery for that. He was counseled on tobacco cessation. We'll follow up with the patient sporadically. Mayito Berry M.D. Neuro-hospitalist Time with Patient: Less than 30
[2020-03-31] MEDS: ATORVASTATIN 20 MG TAB PO SCH (21:25)
[2020-03-31] MEDS: ALPRAZolam 0.25 MG TAB PO SCH (21:26)
[2020-03-31] MEDS: OLANZapine 10 MG TAB PO SCH (21:27)
--- NOTE | 2020-04-01 00:27 | P.PN ---
Subjective This is a pleasant 69 years old male with multiple medical problems, who was transferred from [facility] for possible kidney stone and pyelonephritis. Most likely patient was partially treated there This morning his sitting in chair, not in distress looked comfortable, he knows he isn't [facility] however he still with conscious of the surrounding, he thought it is 2001, and he could not recall the name of the president. He wa sn't sure why he was in the hospital for. However patient denies any chest pain or dizziness, no dyspnea. No dysuria or increased frequency. No abdominal pain. When I asked the patient he told me he has good appetite and is willing to eat. Neurology service on the case he states that he smokes about 2 cigarettes per day however he denies alcohol or illicit drugs 03/30/20 Patient is sleepy today, he opens eyes to verbal stimuli smokes [place] to sleep right away. His been febrile Labs reviewed his WBC is 10.8 K, rest of the CBC is unremarkable, low potassium of 2.8 his been replaced, magnesium 1.8, or going to give 1 dose of magnesium sulfate. Repeat UA from today showing no evidence of infection. However protocol CT done and is elevated at 12. Urine culture showing no growth after [address] of the abdomen and pelvis done earlier showing possible left pyelonephritis Echocardiogram: Ejection fraction 60-65% with no significant for heart disease. Carotid Doppler: Close to 50% stenosis of both internal carotid arteries bilateral internal carotid artery stenosis by 50% Currently patient remains on ceftriaxone 2 g daily. We will add Flagyl 03/31/2020 Patient is fully awake and oriented, he knows he's had recurrent hospital [place], he knows the year and the name of the president, patient was updated about his medical condition, he looks very calm and appropriate. He denies any urinary tract symptoms, no other specific symptoms Neurology team on the case and suggest outpatient follow-up for possible normal pressure hydrocephalus. Echocardiogram showed ejection fraction 60-65%. Possible discharge in 24-48 hours if he keep improving and clinically stable Objective - Vital Signs Vital signs: Vital Signs Temp 98.5 F 03/31/20 20:00 Pulse 84 03/31/20 20:00 Resp 16 04/01/20 00:00 BP 164/76 03/31/20 20:00 Pulse Ox 100 03/31/20 20:00 Intake & Output 03/31/20 03/31/20 04/01/20 06:59 18:59 06:59 Intake Total 250 250 Balance 250 250 Intake: Intake, IV Titration 50 50 Amount cefTRIAXone 1 gm In 50 50 Sodium Chloride 0.9% 50 ml @ 100 mls/hr IVPB Q12HR [facility] Rx#:[id number] Oral 200 200 Other: Voiding Method Diaper Toilet Toilet Incontinent # Voids 2 4 1 # Bowel Movements 1 - Exam -GENERAL: The patient is alert and oriented x1-2, not in any acute distress. Thin built HEENT: Pupils are round and equally reacting to light. EOMI. No scleral icterus. No conjunctival pallor. Normocephalic, atraumatic. No pharyngeal erythema. No thyromegaly. CARDIOVASCULAR: S1 and S2 present. No murmurs, rubs, or gallops. PULMONARY: Chest is clear to auscultation, no wheezing or crackles. ABDOMEN: Soft, nontender, nondistended, normoactive bowel sounds. No palpable organomegaly. MUSCULOSKELETAL: No joint swelling or deformity. EXTREMITIES: No cyanosis, clubbing, or pedal edema. NEUROLOGICAL: Gross neurological examination did not reveal any focal deficits. SKIN: No rashes. no petechiae. - Labs CBC & Chem 7: 03/30/20 06:29 03/30/20 14:19 Labs: Abnormal Lab Results - Last 24 Hours (Table) 03/30/20 Range/Units 06:29 Triglycerides 165.0 H (0.0-149.0) mg/dL HDL Cholesterol 16.0 L (40.0-60.0) mg/dL Microbiology - Last 24 Hours (Table) 03/27/20 12:53 Blood Culture - Preliminary Blood No Growth after 96 hours Assessment and Plan Assessment: Possible urinary tract infection with left pyelonephritis at [facility], partially treated Metabolic encephalopathy secondary to above Mild to moderate calories protein malnutrition Acute kidney injury, creatinine improved close to baseline. Currently with a reference range Bilateral internal carotid artery stenosis about 50% History of kidney stone Gait dysfunction Normochromic anemia History of CVA Gastroesophageal reflux disease History of seizure History of hiatal hernia Bipolar depression, not an active issue Nicotine dependence Plan: This is a pleasant 69 years old male with multiple medical problems admitted with UTI. And altered mental status, neurology team on the case. Continue with ceftriaxone, and Flagyl. Discontinue IV fluids and encourage eating. Follow-up recommendation by neurologist Labs and medication were reviewed.. Continue same treatment. Continue with symptomatic treatment. Resume home medication. Monitor lytes and vitals. DVT and GI prophylaxis. Further recommendationsas per clinical course of the patient DVT prophylaxis: Subcutaneous Lovenox GI Prophylaxis: Ppi Prognosis is guarded
[2020-04-01 06:45] LABS: Basophils % (A) 0 %; Eosinophils # (A) 0.2 k/uL (0-0.7); Eosinophils % (A) 2 %; HCT 31.6 % (39.0-53.0); Lymphocytes # (A) 1.7 k/uL (1.0-4.8); Lymphocytes % (A) 15 %; MCH 30.2 pg (25.0-35.0); MCHC 31.7 g/dL (31.0-37.0); MCV 95.2 fL (80.0-100.0); Mean Platelet Volume 7.3; Monocytes # (A) 0.7 k/uL (0-1.0); Monocytes % (A) 6 %; Neutrophils # (A) 8.4 k/uL (1.3-7.7); Neutrophils % (A) 75 %; Platelet Count 465 k/uL (150-450); RBC 3.31 m/uL (4.30-5.90); RDW 14.2 % (11.5-15.5); WBC 11.1 k/uL (3.8-10.6)
[2020-04-01] MEDS: ENOXAPARIN 40 MG/0.4 ML SYRINGE SQ SCH (08:55)
[2020-04-01] MEDS: ACETAMINOPHEN TAB 500 MG TAB PO SCH (08:55)
[2020-04-01] MEDS: FLUoxetine HCL 20 MG CAP PO SCH (08:55)
[2020-04-01] MEDS: levETIRAcetam 500 MG TAB PO SCH (08:56)
[2020-04-01] MEDS: PANTOPRAZOLE 40 MG TABLET PO SCH (08:56)
[2020-04-01] MEDS: FERROUS SULFATE 325 MG TAB PO SCH (08:56)
[2020-04-01] MEDS: CYANOCOBALAMIN 500 MCG TAB PO SCH (08:56)
[2020-04-01] MEDS: ASPIRIN 81 MG PO SCH (08:56)
[2020-04-01] MEDS: DONEPEZIL 5 MG TAB PO SCH (08:57)
--- NOTE | 2020-04-01 11:51 | P.DS ---
Providers Date of admission: 03/27/20 01:47 Attending physician: Davin Cloud Consults: 03/27/20 20:23 Consult Physician Routine Consulting Provider: Mayito Berry Consult Reason/Comments: CVA/ seizures Do you want consulting provider notified?: Yes Primary care physician: Allen Parish Hospital Course: Diagnoses: Acute urinary tract infection with left pyelonephritis , CT of the abdomen showing fat stranding around the left kidney, significantly improved. Metabolic encephalopathy secondary to above, improved and patient back to mental baseline over the last 2 days Mild to moderate calories protein malnutrition Acute kidney injury, creatinine improved close to baseline. Currently within a reference range Bilateral internal carotid artery stenosis about 50%, follow-up as an outpatient History of kidney stone Gait dysfunction Normochromic anemia History of CVA Gastroesophageal reflux disease History of seizure History of hiatal hernia Bipolar depression, not an active issue Nicotine dependence Hospital course: This is a pleasant 69 years old male with multiple medical problems, who was transferred from [facility] for possible kidney stone and pyelonephritis. Most likely patient was partially treated there On the presentation patient was confused and delirious secondary to his sepsis. Repeat urine analysis in this hospital showing possible infection with large leukocyte esterase, with large WBCs more than 182, patient was treated IV antibiotics in the form of ceftriaxone, his repeat urine analysis showed significant improvement with normal WBC at 3 per high-power field. And negative leukocyte esterase. Urine culture is negative, possibly because patient is already been partially treated. CT of the abdomen and pelvis showing flaccid stranding around the left kidney with suspicion for left pyelonephritis. Patient mentation also significantly improved and over the last 2 days he is been awake alert and oriented to time, place and person and his or to the surrounding, neurologist evaluated him and cleared him for discharge. However patient CAT scan of the head was suspicious for normal pressure hydrocephalus in the presents of urinary symptoms and gait difficulty, neurologist recommended outpatient follow-up for possible therapeutic and diagnostic lumbar puncture and possible shunt if indicated, On the day of discharge patient denies any symptoms and he states that his back to his baseline, no chest pain or dyspnea, no abdominal pain, no nausea vomiting, no dysuria or increased frequency or hesitancy or urgency, no other urinary complaints. No change in bowel habits. Patient is a think she can go back to his on place Patient was cleared for discharge by neurology service patient will be discharge on oral antibiotics with Ceftin for 10 days Problems and management plan were discussed with the patient and he verbalized understanding and acceptance Patient was found stable and can be discharged home however he needs follow-up as an outpatient. Patient was instructed to follow up with PCP Dr. Juana Degroot within one week and patient agrees, also patient was instructed to follow up with neurologist Dr. Salvador mcgee in 1-2 weeks and with her urologist Dr. Russo in 1-2 weeks, he agrees See progress note from today for physical exam Time spent more than 35 minutes Patient Condition at Discharge: Fair Plan - Discharge Summary Discharge Rx Participant: No New Discharge Prescriptions: No Action Omeprazole [PriLOSEC] 40 mg PO DAILY Ferrous Sulfate [Iron] 325 mg PO DAILY Acetaminophen [Tylenol Extra Strength] 2 tab PO BID OLANZapine [ZyPREXA] 20 mg PO HS ALPRAZolam [Xanax] 0.25 mg PO HS Donepezil [Aricept] 5 mg PO DAILY Cyanocobalamin (Vitamin B-12) [Vitamin B-12] 1,000 mcg PO DAILY levETIRAcetam [Keppra] 500 mg PO BID FLUoxetine HCL [PROzac] 60 mg PO DAILY Discharge Medication List ALPRAZolam [Xanax] 0.25 mg PO HS 12/30/19 [History] Acetaminophen [Tylenol Extra Strength] 2 tab PO BID 12/30/19 [History] Cyanocobalamin (Vitamin B-12) [Vitamin B-12] 1,000 mcg PO DAILY 12/30/19 [History] Donepezil [Aricept] 5 mg PO DAILY 12/30/19 [History] Ferrous Sulfate [Iron] 325 mg PO DAILY 12/30/19 [History] OLANZapine [ZyPREXA] 20 mg PO HS 12/30/19 [History] Omeprazole [PriLOSEC] 40 mg PO DAILY 12/30/19 [History] FLUoxetine HCL [PROzac] 60 mg PO DAILY 03/27/20 [History] levETIRAcetam [Keppra] 500 mg PO BID 03/27/20 [History] Follow up Appointment(s)/Referral(s): Nolvia Santiago MD [REFERRING] - 1 Week (Neurologist) Zane Arias MD [Primary Care Provider] - 1-2 days Pilar Santiago MD [REFERRING] - 1 Week (Neurologist)
[2020-04-01 11:58] VITALS: BP 119/73; PULSE 76; RESP 15; TEMP 98.4
--- NOTE | 2020-04-01 16:24 | P.PN ---
Subjective Progress Note Date: 04/01/20 He was seen at bedside and he continues to feel good. Denies of any new neurological problems. Objective - Vital Signs Vital signs: Vital Signs Temp 98.4 F 04/01/20 11:58 Pulse 76 04/01/20 11:58 Resp 15 04/01/20 11:58 BP 119/73 04/01/20 11:58 Pulse Ox 96 04/01/20 11:58 Intake & Output 03/31/20 04/01/20 04/01/20 18:59 06:59 18:59 Intake Total 250 490 Balance 250 490 Weight 54.431 kg Intake: Intake, IV Titration 50 Amount cefTRIAXone 1 gm In 50 Sodium Chloride 0.9% 50 ml @ 100 mls/hr IVPB Q12HR [facility] Rx#:[id number] Oral 200 490 Other: Voiding Method Toilet Toilet Toilet Diaper Incontinent # Voids 4 1 3 # Bowel Movements 1 1 - Exam GENERAL: The patient is lying in bed and is not in acute distress. NEUROLOGICAL: Higher mental function: The patient is awake, alert, oriented to self, place and time. He is slow to respond but responding questions correctly. He is able to i dentify objects correctly (pen and watch). Patient is following simple commands. No aphasia and no neglect. Cranial nerves: The pupils are round, equal and reactive to light. Visual lee are full to confrontation throughout. Extraocular movement is intact no nystagmus is noted. Facial sensation is normal to touch throughout. The facial strength is normal throughout. Hearing is normal bilaterally to hand rub. Tongue is midline and moved [id number] without any difficulty. No dysarthria is noted. Shoulder shrug is normal bilaterally. Motor: Gait: was two person assist to get patient out of bed but had magnetic gait. The strength is 5/5 throughout. Somewhat decreased bulk throughout. Normal tone. Cerebellum: Normal finger to nose bilaterally. Sensation: Sensation is normal to touch throughout. Reflexes (right/left): 2+ throughout except 3+ at bilateral tricpes and patell ar. Otherwise 2+ throughout. Ankles are 1+ bilaterally. Plantars are downgoing bilaterally. - Labs CBC & Chem 7: 04/01/20 06:27 03/30/20 14:19 Labs: Abnormal Lab Results - Last 24 Hours (Table) 04/01/20 Range/Units 06:27 WBC 11.1 H (3.8-10.6) k/uL RBC 3.31 L (4.30-5.90) m/uL Hgb 10.0 L (13.0-17.5) gm/dL Hct 31.6 L (39.0-53.0) % Plt Count 465 H (150-450) k/uL Neutrophils # 8.4 H (1.3-7.7) k/uL Microbiology - Last 24 Hours (Table) 03/27/20 12:53 Blood Culture - Preliminary Blood No Growth after 120 hours Assessment and Plan Assessment: Cognitive impairment, urinary incontinence and falls is a likely suggestive of normal pressure hydrocephalus which correlates with the brain imaging History of ?seizures History of TIA Traumatic brain injury (about 2 months ago) Acute urinary tract infection with sepsis with possible left pyelonephritis. History of bipolar Nicotine dependence Plan: Regarding the patient history of seizures, the patient is on Keppra 500 mg twice a day and that is to be continued. I will also not modify that antiepileptic drug since it seems that the seizure is controlled. The patient did not have any seizure during hospital stay or within last 7 days. EEG is not warranted at this time since he had no further seizure-like activity recently. Regarding the patient memory problems, urinary incontinence and falls which seem consisted of normal pressure hydrocephalus. Also did imaging CT of the head the scene also consisted with normal pressure hydrocephalus (CT of the head shows atrophy but his ventricles lateral, third and fourth ventricle are more significantly enlarged in comparison to the atrophy). I notified the sister that the patient needs a lumbar puncture as an outpatient and possibly a shunt if lumbar puncture shows improvement in his symptoms. She said she'll take into consideration. TSH: 0.860, vitamin B12: 1656 and folate: 3.8. Also seeing neuropsychiatry for further assessment of the his cognition as an outpatient. Regarding the patient the TIA: carotid duplex: There is anterior grade flow in the vertebral arteries. The images and measurements suggest close to 50% stenosis of both internal carotid arteries. 2-D echo: Left ventricle hypertrophy. Ejection fraction of 60-65%. There is a mild aortic stenosis present. Lipid profile: Triglyceride 165, cholesterol is 109, LDL is 60 HDL is 16. Continue Aspirin 81 mg and Lipitor 20 mg daily for secondary stroke prophylaxis Regarding the patient urinary tract infection with suspicion of pyelonephritis we'll defer the management to the primary team. Patient's sister stated that she'll make sure the patient sees a neurologist as an outpatient. She stated that that she's thinking about making the patient see Dr. Santiago. Again if the lumbar puncture shows improvement recommend the shunt which he needs to see the neurosurgery for that. He was counseled on tobacco cessation. Likely will be discharged home today. Mayito Berry M.D. Neuro-hospitalist Time with Patient: Less than 30
== END 2020-04-01 15:45 | DRG 871 ==
LOC: EC 01:34 → 4SSUR 01:47 → 6NMEDSUR 03-30 13:04
PROVIDERS: ADMIT Hospitalist; ATTEND Hospitalist
DX: A41.9 Sepsis, unspecified organism (principal); G93.41 Metabolic encephalopathy; E44.1 Mild protein-calorie malnutrition; N17.9 Acute kidney failure, unspecified; G91.2 (Idiopathic) normal pressure hydrocephalus; M62.82 Rhabdomyolysis; N10 Acute pyelonephritis; F31.30 Bipolar disorder, current episode depressed, mild or moderate severity, unspecified; Z68.1 Body mass index [BMI] 19.9 or less, adult; G40.909 Epilepsy, unspecified, not intractable, without status epilepticus; K21.9 Gastro-esophageal reflux disease without esophagitis; K44.9 Diaphragmatic hernia without obstruction or gangrene; F90.9 Attention-deficit hyperactivity disorder, unspecified type; E86.0 Dehydration; D64.9 Anemia, unspecified; E87.6 Hypokalemia; I65.23 Occlusion and stenosis of bilateral carotid arteries; R41.89 Other symptoms and signs involving cognitive functions and awareness; F17.210 Nicotine dependence, cigarettes, uncomplicated; R32 Unspecified urinary incontinence; I35.0 Nonrheumatic aortic (valve) stenosis; M19.90 Unspecified osteoarthritis, unspecified site; R94.31 Abnormal electrocardiogram [ECG] [EKG]; Z71.3 Dietary counseling and surveillance; Z71.6 Tobacco abuse counseling; Z79.899 Other long term (current) drug therapy; Z86.73 Personal history of transient ischemic attack (TIA), and cerebral infarction without residual deficits; Z90.49 Acquired absence of other specified parts of digestive tract; Z96.7 Presence of other bone and tendon implants; Z87.442 Personal history of urinary calculi; Z91.81 History of falling; Z87.820 Personal history of traumatic brain injury; Z80.9 Family history of malignant neoplasm, unspecified; Z82.49 Family history of ischemic heart disease and other diseases of the circulatory system
CPT/HCPCS: 70450; 71045; 74176; 76770; 80048; 80053; 80061; 81001; 82607; 82746; 82747; 83735; 84132; 84145; 84443; 85025; 87040; 87086; 93005; 93306; 93880; 96374; 99285